=== PATIENT | female | born 1995 | race Caucasian/White ===

== ENCOUNTER 2017-07-18 23:21 | Emergency (ER) | payer SELFPAY ==
[2017-07-18 23:22] VITALS: BP 155/103; PULSE 114; RESP 17; TEMP 36; O2SAT 96; BMI 32.9
--- NOTE | 2017-07-18 23:44 | ED.VISSUMM ---
- ER Visit Summary Date of Service: 07/18/17 Chief Complaint: Vaginal bleeding History of Present Illness: The patient is a 21 F with a history of PCOS and intermittent menstrual cycles has had vaginal spotting for the last 3-5 days after intercourse only, this has occurred 2 or 3 times total. She has unprotected intercourse with her significant other, and does not take control. Her last normal menstrual cycle was 06/01/17. She is usually irregular, but has not had spotting after intercourse like this. She is having no vaginal pain, but she has some occasional menstrual cramping, no other abdominal pains. No lightheadedness, generalized fatigue, fevers, nausea, vomiting, diarrhea, or urinary symptoms. Physical Examination: Well-appearing in no acute distress. Abdomen soft nontender nondistended. Vital signs are normal. No CVA tenderness. Pelvic exam offered, but declined by patient so it was deferred. Test Results: Urine negative. Emergency Department Course and Treatment: Patient was reassured. I do not think she needs any other emergent testing at this time. She has no PCP or automation control integrator, but she needs to follow-up with an MORTAR CARRIER. I suspect that her spotting is not dangerous in nature, and is likely related to her PCOS, and is probably uterine. Treatment Plan: Close outpatient gynecologic follow-up, returning for any worsening symptoms or concern. Patient is comfortable with this plan. Disposition: Discharge home Impression: Irregular vaginal bleeding Polycystic ovarian syndrome This note was generated with [employer] dictation software. It may contain incorrect words, spelling, and punctuation that were not noted in review of the chart prior to signing ED Disposition - Plan for ED Patient: Disposition: Home or Assisted Living Chief Complaint: Vag Bleeding Instructions: ED Bleed Irregular Vaginal Referrals: Dacia Miramontes MD [STAFF PHYSICIAN] - (call for appt)
[2017-07-18 23:48] VITALS: BP 131/102; PULSE 94; RESP 18; O2SAT 99
[2017-07-18 23:59] LABS: Internal QC Validated? YES +Cl - CLEAR BKGD
[2017-07-19] LABS: Pregnancy, Urine Negative Negative
--- NOTE | 2017-07-19 00:07 | ED.DCSUM_ITS ---
- ER Visit Summary Date of Service: 07/18/17 Chief Complaint: Vaginal bleeding History of Present Illness: The patient is a 21 F with a history of PCOS and intermittent menstrual cycles has had vaginal spotting for the last 3-5 days after intercourse only, this has occurred 2 or 3 times total. She has unprotected intercourse with her significant other, and does not take control. Her last normal menstrual cycle was 06/01/17. She is usually irregular , but has not had spotting after intercourse like this. She is having no vaginal pain, but she has some occasional menstrual cramping, no other abdominal pains. No lightheadedness, generalized fatigue, fevers, nausea, vomiting, diarrhea, or urinary symptoms. Physical Examination: Well-appearing in no acute distress. Abdomen soft nontender nondistended. Vital signs are normal. No CVA tenderness. Pelvic exam offered, but declined by patient so it was deferred. Test Results: Urine negative. Emergency Department Course and Treatment: Patient was reassured. I do not think she needs any other emergent testing at this time. She has no PCP or medical center manager, but she needs to follow-up with an STUDENT ACTIVITIES DIRECTOR. I suspect that her spotting is not dangerous in nature, and is likely related to her PCOS, and is probably uterine. Treatment Plan: Close outpatient gynecologic follow-up, returning for any worsening symptoms or concern. Patient is comfortable with this plan. Disposition: Discharge home Impression: Irregular vaginal bleeding Polycystic ovarian syndrome This note was generated with [employer] dictation software. It may contain incorrect words, spelling, and punctuation that were not noted in review of the chart prior to signing ED Disposition - Plan for ED Patient: Disposition: Home or Assisted Living Chief Complaint: Vag Bleeding Instructions: ED Bleed Irregular Vaginal Referrals: Dacia Miramontes MD [STAFF PHYSICIAN] - (call for appt)
== END 2017-07-19 00:14 | disposition home or self-care (01) ==
PROVIDERS: Emergency Provider Emergency Medicine
DX: N92.6 Irregular menstruation, unspecified (principal); E28.2 Polycystic ovarian syndrome
CPT/HCPCS: 81025; 99282

== ENCOUNTER 2017-09-21 11:56 | Emergency (ER) | payer SELFPAY ==
[2017-09-21 11:58] VITALS: BP 150/92; PULSE 125; RESP 16; TEMP 37.5; O2SAT 95; BMI 32.0
[2017-09-21] MEDS: Ketorolac 30 MG/ML Syringe IV (12:56)
[2017-09-21] MEDS: 0.9% Normal Saline 1,000 ML 1000 ML IV (12:56)
--- NOTE | 2017-09-21 13:00 | RAD_ITS ---
STUDY: X-RAY CHEST REASON FOR EXAM: Female, 21 years old. Cough. TECHNIQUE: PA and lateral views of the chest. COMPARISON: Comparison is made with prior study dated December 02, 2016. FINDINGS: The lungs are clear and expanded. There is no demonstrated pleural abnormality. Normal size heart. Normal mediastinum and janelle. Normal visualized pulmonary arteries. Normal visualized aortic arch and descending thoracic aorta. Normal visualized thoracic spine. Normal visualized ribs, clavicles, and shoulders. There is no demonstrated abnormality of the visualized soft tissue structures of the upper abdomen. RAD/Chest PA and Lateral IMPRESSION: Normal x-ray examination of the chest. Electronically Signed: Joe Galeano MD at 13:19 EDT Tel [phone], Service support ,
[2017-09-21 13:07] LABS: Absolute Lymphocyte Count 1.13 X10^3/ul (0.83-4.51); Absolute Neutrophil Count 1.8 X10^3/uL (2.0-7.7); Basophil# 0.04 X10^3/uL; Basophil% 1.1 % (0-1); Eosinophil# 0.12 X10^3/uL; Eosinophils% 3.3 % (0-5); Hematocrit 49.8 % (37-47); Hemoglobin 17.3 g/dl (12.0-15.0); Lymphocyte # 1.13 X10^3/ul (4.0); Lymphocyte % 31.2 % (19-41); Mean Corp Hgb Conc 34.7 g/gl (32-36); Mean Corpuscular Hgb 29.8 pg (27.0-32.0); Mean Corpuscular Volume 85.9 fL (81-99); Mean Platelet Vol. 9.7 fl (6.2-12.0); Monocyte# 0.53 X10^3/uL; Monocyte% 14.6 % (0-10); Neutrophil % 49.8 % (47-70); Platelet Count 153 K/mm3 (150-450); RBC Distribution Width CV 13.2 % (11.6-14.6); RBC Distribution Width SD 41.5 fl (35.1-43.9); White Blood Count 3.6 K/mm3 (4.4-11.0)
[2017-09-21 13:08] LABS: POSITIVE COUNT NO; POSITIVE DIFFERENTIAL NO; POSITIVE MORPHOLOGY NO
[2017-09-21 13:19] LABS: Anion Gap 11 (5-15); BUN 11 mg/dL (7-18); BUN/Creat Ratio 15.2 RATIO (10-20); Calcium,Total 9.2 mg/dL (8.5-10.1); Chloride 102 mmol/L (98-107); Creatinine, Serum 0.72 mg/dL (0.55-1.02); EST Glomerular Filtration Rate 107 mL/min (>60); Est Glom Filt Rate - Afr Amer 130 mL/min (>60); Estimated Creatinine Clearance 93.27 ml/min; Glucose 249 mg/dL (74-106); Sodium Level 139 mmol/L (136-145)
[2017-09-21 13:28] LABS: Pregnancy, Serum, hCG Quali. NEGATIVE Negative (0-9 Nonpreg)
--- NOTE | 2017-09-21 13:33 | ED.RN ---
Dr. Pleitez notified of flu B +
[2017-09-21 13:45] VITALS: BP 167/83; PULSE 98; RESP 18; O2SAT 98
--- NOTE | 2017-09-21 14:17 | ED.DCSUM_ITS ---
- ER Visit Summary Date of Service: 09/21/17 Chief Complaint: Cough, fever, chills History of Present Illness: The patient is a 21 F with a 3 day history of what started out as runny nose and sore throat followed by non-productive cough. She has had body aches. She reports fever up to 103. Physical Examination: Vital signs are significant for blood pressure of 150/92, temperature 99.5, heart rate 125, respiratory rate 16, pulse ox 95% on room air. Patient sitting upright in bed. She is in no acute distress. Head neck examination is grossly unremarkable. Heart is tachycardic and regular. Lung sounds are grossly clear with good air movement. Abdomen is soft nontender. Skin examination reveals no rash or lesions. Test Results: Two-view chest x-ray is unremarkable. CBC was a white count of 3.6. Hemoglobin is concentrated at 17.3. Chemistry studies are significant for glucose of 249. test is negative. Influenza swab is positive for flu B. Emergency Department Course and Treatment: Patient is given a liter of IV fluids along with IV Toradol. Test results were discussed with patient and family at bedside. She declines Tamiflu at this time and will continue with supportive care. She is written off work until free of fever for 24 hours. Treatment Plan: [] Disposition: Discharge Impression: Influenza B This note was generated with [employer] dictation software. It may contain incorrect words, spelling, and punctuation that were not noted in review of the chart prior to signing ED Disposition - Plan for ED Patient: Chief Complaint: Cough Referrals: Care Physician,No Primary [Primary Care Provider] -
--- NOTE | 2017-09-21 14:17 | ED.DEP ---
ED Disposition - Plan for ED Patient: Disposition: Home or Assisted Living Chief Complaint: Cough Instructions: ED Flu Referrals: Orlando Lopez MD [STAFF PHYSICIAN] - As Needed
--- NOTE | 2017-09-22 12:58 | CM.ED ---
ED CALLBACK: Follow-up phone call placed. No answer. Voicemail left with return call back information for questions/concerns.
== END 2017-09-21 14:28 | disposition home or self-care (01) ==
PROVIDERS: Emergency Provider Emergency Medicine
DX: J10.1 Influenza due to other identified influenza virus with other respiratory manifestations (principal); E11.9 Type 2 diabetes mellitus without complications; E28.2 Polycystic ovarian syndrome; Z86.79 Personal history of other diseases of the circulatory system; Z90.49 Acquired absence of other specified parts of digestive tract; Z72.0 Tobacco use
CPT/HCPCS: 71046; 80048; 84703; 85025; 87804; 96361; 96374; 99283; J7030; A4216

== ENCOUNTER 2017-12-27 22:34 | Observation (INO) | payer SELFPAY ==
[2017-12-27 22:34] VITALS: BP 130/95; PULSE 130; RESP 22; TEMP 37.4; O2SAT 96; BMI 32.1
[2017-12-27 23:35] VITALS: BP 136/94; PULSE 127; RESP 16; O2SAT 94
[2017-12-28] VITALS (10 sets, daily range): BP systolic 114–150; BP diastolic 75–87; PULSE 104–127; RESP 18–20; TEMP 37.2; O2SAT 90–97; BMI 32.7
[2017-12-28] MEDS: Ipratropium/Albuterol Sulfate 3 ML AMPUL.NEB INHALATION ×2 (00:18→06:55)
[2017-12-28 00:25] LABS: Absolute Lymphocyte Count 2.34 X10^3/ul (0.83-4.51); Absolute Neutrophil Count 10.3 X10^3/uL (2.0-7.7); Basophil# 0.07 X10^3/uL; Basophil% 0.5 % (0-1); Eosinophil# 0.43 X10^3/uL; Eosinophils% 3.1 % (0-5); Hematocrit 47.5 % (37-47); Hemoglobin 16.4 g/dl (12.0-15.0); Lymphocyte # 2.34 X10^3/ul (4.0); Lymphocyte % 16.8 % (19-41); Mean Corp Hgb Conc 34.5 g/gl (32-36); Mean Corpuscular Hgb 30.3 pg (27.0-32.0); Mean Corpuscular Volume 87.8 fL (81-99); Monocyte# 0.72 X10^3/uL; Monocyte% 5.2 % (0-10); Neutrophil # 10.33 X10^3/uL (2.7-7.7); Neutrophil % 74.3 % (47-70); POSITIVE COUNT NO; POSITIVE DIFFERENTIAL NO; POSITIVE MORPHOLOGY NO; Platelet Count 255 K/mm3 (150-450); RBC Distribution Width CV 13.7 % (11.6-14.6); RBC Distribution Width SD 43.6 fl (35.1-43.9); Red Blood Count 5.41 M/mm3 (4.2-5.4); White Blood Count 13.9 K/mm3 (4.4-11.0)
[2017-12-28 00:30] LABS: Prothrombin Time (Protime)PT. 12.9 SECONDS (11.7-14.9)
[2017-12-28 00:31] LABS: Partial Thromboplast Time 28.7 Seconds (24.1-36.2)
[2017-12-28 00:40] LABS: Anion Gap 8 (5-15); BUN 15 mg/dL (7-18); BUN/Creat Ratio 20.6 RATIO (10-20); Chloride 104 mmol/L (98-107); Creatinine, Serum 0.73 mg/dL (0.55-1.02); EST Glomerular Filtration Rate 106 mL/min (>60); Est Glom Filt Rate - Afr Amer 128 mL/min (>60); Estimated Creatinine Clearance 91.22 ml/min; Glucose 111 mg/dL (74-106); Potassium 3.8 mmol/L (3.5-5.1); Sodium Level 139 mmol/L (136-145)
[2017-12-28 00:44] LABS: Pregnancy, Serum, hCG Quali. NEGATIVE Negative (0-9 Nonpreg)
[2017-12-28] MEDS: 0.9% Normal Saline 1,000 ML 1000 ML IV (00:49)
[2017-12-28] MEDS: Ketorolac 30 MG/ML Syringe IV (02:06)
--- NOTE | 2017-12-28 02:19 | ED.VISSUMM ---
- ER Visit Summary Date of Service: 12/28/17 Chief Complaint: Dyspnea, wheezing History of Present Illness: The patient is a 22 F worsening dyspnea wheezing since yesterday. States nonproductive cough. Fever of 100.4 this morning. No medications taken. Tobacco history. Denies any asthma or COPD history. No recent travel, surgeries, or immobilizations. No history of PE or DVT. States mild chest discomfort with a deep breaths. However no pain. No previous similar symptoms in the past. No further complaints. Physical Examination: General: Alert and oriented ?3, no distress, however occasional deep breaths. HEENT: Normocephalic, atraumatic. Moist mucosa membranes Neck: supple, nontender. Cardiovascular: Regular tachycardic rate and rhythm, no murmurs Respiratory: Normal breath sounds, symmetric, Abdomen: Soft, nontender, nondistended Extremities: Nontender, no edema, pulses intact ?4 Neuro: no focal neurological deficits. Test Results: EKG sinus tachycardia 117, no ST changes. T-wave inversion in leads III. White count 13.9. Was 16.4. Troponin negative. HCG negative. CTA chest negative for PE, dissection, or infiltrate. Emergency Department Course and Treatment: Patient subjective dyspnea, was placed on oxygen with improvement. Complaining of nonproductive cough, clinically appears short of breath. She is a moderate risk Wells criteria for potential PE. Discussed with patient for CTA of the chest for which she agreed to pursue. Labs no white count 13.9. Troponin negative. CTA chest negative for PE or dissection or infiltrate. She was given fluids all aerosol treatment x1. Reevaluation multiple heart rate would be persistently in the 120s sometimes low 130s. Later complained of headache therefore Toradol was given. However having persistent tachycardia at this time. Spoke with hospitalist Dr. Pagan for admission due to her heart rate. Treatment Plan: [] Disposition: Admission Impression: 1. Acute bronchitis 2 persistent tachycardia This note was generated with [employer] dictation software. It may contain incorrect words, spelling, and punctuation that were not noted in review of the chart prior to signing ED Disposition - Plan for ED Patient: Disposition: Acute Care Hospital [facility] Chief Complaint: Shortness of Breath Diagnosis: Acute bronchitis, Tachycardia Referrals: Care Physician,No Primary [Primary Care Provider] -
[2017-12-28] MEDS: 0.9% Normal Saline 1,000 ML 150 ML IV (02:21)
--- NOTE | 2017-12-28 02:53 | PCM.HP.STD ---
Problem List (1) Smoker Status: Acute (2) Acute bronchitis Status: Acute (3) Tachycardia Status: Acute History of Present Illness Date of Admission: 12/28/17 Chief Complaint: shortness of breath, rapid heart rate The patient is a 22 year old female with a history of diabetes and smoking presents to the ER with shortness of breath. The onset of this was yesterday but it has progressed. She denies chest pain but she reports having had fevers. No nausea or vomiting. She lacks health care insurance and admits to non compliance with her diabetes medication. CTA is negative for a PE or infiltrate. She remains labored with regard to breathing, and tachycardic and admission was request. Past Medical History Allergies No Known Allergies Allergy (Verified 12/27/17 22:36) Home Medications: Ambulatory Orders Medication Instructions Recorded Escitalopram Oxalate [Lexapro] 10 mg PO DAILY 12/27/17 Glipizide 5 mg PO DAILY 12/27/17 Metformin HCl 1,000 mg PO BID 12/27/17 Surgical History: no surgical history Psychiatric History: No pertinent psych hx MORTGAGE ADVISOR History: No pertinent MORTGAGE ADVISOR history Smoking Status: Current every day smoker - *Family History Maternal History Items: Unknown Review of Systems Constitutional: Reports: Fever. Denies: Chills, Weight Change HEENT: Denies: Head Aches, Sinus Congestion, Sinus Drainage Cardiovascular: Denies: Chest Pain, Palpitations Respiratory: Reports: Cough, Sputum production, Wheezing. Denies: Shortness of breath at rest Gastrointestinal: Denies: Abdominal Pain, Nausea, Vomiting Genitourinary: Denies: Dysuria Musculoskeletal: Denies: Joint Pain, Joint Tenderness Skin: Denies: Rash, Wounds Neurological: Denies: Numbness, Tingling, Focal weakness Psychiatric: Denies: Anxiety, Depression, Homicidal Ideations, Suicidal Ideations Hematologic/ Lymphatic: Denies: Easy Bruising, Easy Bleeding VTE Information - Inpt Only VTE Present on Admission: No VTE Mechan Device Prophylaxis: SCD's VTE Pharm Prophylaxis ordered?: No Patient Problems: Active and Suspected Problems Acute bronchitis (Acute) Tachycardia (Acute) Smoker (Acute) - Physical Exam General: Alert, Oriented x3, Cooperative HEENT: Atraumatic, Normocephalic Neck: Supple Lungs: Normal air movement, Diminished, Wheezes Cardiovascular: Normal S1, Normal S2, No murmurs, Tachycardic Abdomen: Bowel Sounds Present, Soft, Non Tender Extremities: No edema, Capillary Refill Less than 3 Seconds Skin: No rashes Musculoskeletal: No Tenderness to Palpation of Joints or Extremities Neurological: Neuro grossly intact Psych/Mental Status: Normal Affect, Appropriate Vital Signs Temp Pulse Resp BP Pulse Ox 99.4 F H 127 H 18 136/94 H 92 12/27/17 22:34 12/28/17 02:05 12/28/17 02:05 12/27/17 23:35 12/28/17 02:05 Oxygen Flow Rate (L/min) 2 Oxygen Delivery Method Room Air Weight: 170 lb Body Mass Index (BMI) 32.1 Laboratory Tests Past 24 Hrs 12/28/17 12/28/17 12/28/17 00:05 00:05 00:05 WBC 13.9 H RBC 5.41 H Hgb 16.4 H Hct 47.5 H MCV 87.8 MCH 30.3 MCHC 34.5 RDW 13.7 RDW Differential 43.6 Plt Count 255 MPV 10.0 Immature Gran % (Auto) 0.100 Neut % (Auto) 74.3 H Lymph % (Auto) 16.8 L [place] % (Auto) 5.2 Eos % (Auto) 3.1 Baso % (Auto) 0.5 Absolute Neuts (auto) 10.3 H Absolute Lymphs (auto) 2.34 Total Counted Not Reportable PT 12.9 INR 1.0 APTT 28.7 Sodium 139 Potassium 3.8 Chloride 104 Carbon Dioxide 27.0 Anion Gap 8 BUN 15 Creatinine 0.73 Estim Creat Clear Calc 91.22 Est GFR (MDRD) Af Amer 128 Est GFR (MDRD) Non-Af 106 BUN/Creatinine Ratio 20.6 H Glucose 111 H Calcium 10.0 Troponin I < 0.015 Serum , Qual 12/28/17 00:05 WBC RBC Hgb Hct MCV MCH MCHC RDW RDW Differential Plt Count MPV Immature Gran % (Auto) Neut % (Auto) Lymph % (Auto) [place] % (Auto) Eos % (Auto) Baso % (Auto) Absolute Neuts (auto) Absolute Lymphs (auto) Total Counted PT INR APTT Sodium Potassium Chloride Carbon Dioxide Anion Gap BUN Creatinine Estim Creat Clear Calc Est GFR (MDRD) Af Amer Est GFR (MDRD) Non-Af BUN/Creatinine Ratio Glucose Calcium Troponin I Serum , Qual NEGATIVE Assessment/Plan All Active Problems Acute bronchitis (Acute) Tachycardia (Acute) Smoker (Acute) Plan - admit to progressive care unit - continue hydration with normal saline at 100cc/hr - cbc, bmp in am - continue routine home medications - solumedrol 40mg IV q 8hrs - duoneb inh q 4hrs prn - levaquin 500mg IV q day - SCDs for DVT prophylaxis - humalog SSI Code Visit OBSV E&M: 28664 Initial observation care L2
--- NOTE | 2017-12-28 03:34 | NURSING ---
Called ED compressor service technician, Erica at this time to confirm Pt okay to come to PCU.
[2017-12-28] MEDS: 0.9% NaCl Peripheral Flush Adult/Peds IV (05:02)
[2017-12-28] MEDS: levoFLOXacin IV 500 MG/100 ML BAG 100 MG IV (05:09)
[2017-12-28 06:37] LABS: Absolute Lymphocyte Count 1.36 X10^3/ul (0.83-4.51); Absolute Neutrophil Count 7.9 X10^3/uL (2.0-7.7); Basophil# 0.06 X10^3/uL; Basophil% 0.6 % (0-1); Eosinophil# 0.53 X10^3/uL; Eosinophils% 5.2 % (0-5); Hematocrit 42.8 % (37-47); Hemoglobin 14.8 g/dl (12.0-15.0); Lymphocyte # 1.36 X10^3/ul (4.0); Lymphocyte % 13.3 % (19-41); Mean Corp Hgb Conc 34.6 g/gl (32-36); Mean Corpuscular Hgb 30.4 pg (27.0-32.0); Mean Corpuscular Volume 87.9 fL (81-99); Mean Platelet Vol. 9.8 fl (6.2-12.0); Monocyte% 3.9 % (0-10); Neutrophil # 7.86 X10^3/uL (2.7-7.7); Neutrophil % 76.9 % (47-70); Platelet Count 213 K/mm3 (150-450); RBC Distribution Width CV 13.8 % (11.6-14.6); RBC Distribution Width SD 44.1 fl (35.1-43.9); Red Blood Count 4.87 M/mm3 (4.2-5.4); White Blood Count 10.2 K/mm3 (4.4-11.0)
[2017-12-28 06:40] LABS: POSITIVE COUNT NO; POSITIVE DIFFERENTIAL NO; POSITIVE MORPHOLOGY NO
[2017-12-28 06:51] LABS: Bedside Glucose 306 mg/dL (70-110)
[2017-12-28 07:05] LABS: Anion Gap 9 (5-15); BUN 18 mg/dL (7-18); BUN/Creat Ratio 20.5 RATIO (10-20); Calcium,Total 8.7 mg/dL (8.5-10.1); Chloride 104 mmol/L (98-107); Creatinine, Serum 0.88 mg/dL (0.55-1.02); EST Glomerular Filtration Rate 86 mL/min (>60); Est Glom Filt Rate - Afr Amer 104 mL/min (>60); Estimated Creatinine Clearance 75.67 ml/min; Glucose 297 mg/dL (74-106); Sodium Level 138 mmol/L (136-145)
[2017-12-28] MEDS: metFORMIN HCl 1,000 MG Tablet 1000 MG PO (07:56)
[2017-12-28] MEDS: glipiZIDE 5 MG Tablet PO (07:56)
[2017-12-28] MEDS: Escitalopram Oxalate 10 MG Tablet PO (09:44)
[2017-12-28 10:15] LABS: Magnesium 1.8 mg/dL (1.6-2.6)
--- NOTE | 2017-12-28 10:23 | PCM.DC ---
- Discharge Diagnoses Current Active Problems: Current Active and Chronic Problems Acute bronchitis (Acute) Tachycardia (Acute) Smoker (Acute) You will use the following diet at home:: Calorie/Carbohydrate Controlled (specify 1200, 1400, etc) - 1800 noa/day Your food should be the consistency of: Regular Your liquids should be the consistency of: Regular/Thin Discharge Activity: Return to Normal Activity Allergies/Adverse Reactions: Allergies No Known Allergies Allergy (Verified 12/27/17 22:36) Medications to take at Discharge Escitalopram Oxalate [Lexapro] 10 mg PO DAILY 12/27/17 Glipizide 5 mg PO DAILY 12/27/17 Metformin HCl 1,000 mg PO BID 12/27/17 Albuterol IH (ProAir) [Proair Hfa] 1 puff INHALATION Q4H PRN PRN #1 inhaler 12/28/17 Prednisone [Deltasone] 40 mg PO DAILY #10 tab 12/28/17 The following prescriptions were given: Albuterol IH (ProAir) [Proair Hfa] 1 puff INHALATION Q4H PRN PRN #1 inhaler PRN Reason: Sob &/Or Wheezing Prednisone [Deltasone] 40 mg PO DAILY #10 tab Primary Care Physician: Care Physician,No Primary [Primary Care Provider] - Please follow up with your Primary Care Physician in: 1 week Test Results: Test results from this visit will be discussed in further detail at your follow-up appointment, if applicable. Proposed Discharge Date: 12/28/17
--- NOTE | 2017-12-28 10:41 | CASEMGMT ---
Patient is listed as self pay. SW spoke with her, introduced self and role at [facility]. Patient said she is waiting on open enrollment at her place of employment. She is able to afford her prescriptions without any problems. She denied need for any resources. Sary ATKINSON MSW
--- NOTE | 2017-12-28 12:57 | PCM.DC.SUM ---
<Johnathan Rockwell - Last Filed: 12/28/17 12:57> Discharge Date and Diagnosis Date of Admission: 12/28/17 Date of Discharge: 12/28/17 - Primary Discharge Diagnosis Acute bronchitis suspect viral DMt2 Obesity Nicotine abuse Hospital Course and Treatment Imaging Results: CT/CTA Chest W/WO Contrast IMPRESSION: Normal CTA chest examination, without a demonstrated pulmonary embolism or arterial dissection. Operations: cholecystecomy Procedures: None Summary of Care Provided: Physical exam on day of discharge: General: Resting comfortably NAD Psych: A/Ox3 normal affect HEENT: PEARRLA AT NC Neck: Supple NT CV: RRR no m/t/r/g/h Resp: CTA Abd: [id number] Soft NT no guarding or rigidity Ext: DP2+= no edema Skin: W/D normal turgor Lymph/Heme: No active bleeding or adenopathy Neuro: CN2-12 intact Hospital course: The patient is a 22 year old F with a hx of smoking, obesity, DMt2 who presented to the hospital with SOB and nonproductive cough for 2 days. She was found to be tachycardic, with leukocytosis, and wheezy on exam. She also had some mild right sided chest pain. A CTA of the chest was performed which was unremarkable. EKG showed sinus tachy. She was felt to have bronchitis so she was admitted to the PCU to monitor her heart rate, given duonebs, solumedrol, and IV levaquin. Her symptoms had improved by the following morning. She felt less SOB, did not require O2, her wheezing had resolved, her WBC count had resolved. She was felt to have a viral bronchitis. She was placed on oral prednisone 40 mg daily x 5 days, and given an albuterol inhaler. Abx were discontinued. She remained sinus tachy, and this was felt to be 2/2 her bronchitis and albuterol therapy. She was discharged home in stable condition. She was advised to follow up with her PCP within a week. This patient was seen by Johnathan Rockwell PA-C under the supervision of Doctor Barber. [] Discharge Diet: 1800 Calorie Control Diet Discharge Activity: Return to Normal Activity Home Medications: Medications to take at Discharge Escitalopram Oxalate [Lexapro] 10 mg PO DAILY 12/27/17 Glipizide 5 mg PO DAILY 12/27/17 Metformin HCl 1,000 mg PO BID 12/27/17 Albuterol IH (ProAir) [Proair Hfa] 1 puff INHALATION Q4H PRN PRN #1 inhaler 12/28/17 Prednisone [Deltasone] 40 mg PO DAILY #10 tab 12/28/17 Following Prescrptions Were Given to Patient: Albuterol IH (ProAir) [Proair Hfa] 1 puff INHALATION Q4H PRN PRN #1 inhaler PRN Reason: Sob &/Or Wheezing Prednisone [Deltasone] 40 mg PO DAILY #10 tab Primary Care Physician: Care Physician,No Primary [Primary Care Provider] - Please follow up with your Primary Care Physician in: 1 week Disposition: Home Minutes spent on discharge:: 35 Patient Condition:: Stable Medical Necessity - Tobacco Use Smoking Status: Current every day smoker Tobacco Use: Cigarettes Meaningful Use Info Meaningful Use Diagnoses (Choose all that apply): None applicable <Johnny Barber - Last Filed: 12/28/17 13:53> Hospital Course and Treatment Operations: None Procedures: None Summary of Care Provided: Patient seen and examined independently. Data reviewed. I agree with the above note by the physician metal moulder's assistant. The patient is a 22 year old F is a shortness of breath and cough for [address] imaging for pulmonary embolism. Also did not reveal any infiltrates.. Patient will be discharged with redness on butyryl. Patient was noted to be tachycardic. Once again, patient did not have a pulmonary embolism. Likely reactive with the patient's shortness of breath. Patient was not hypoxic. Likely her tachycardia is also exacerbated by her butyryl. As for the patient follow-up with her primary care doctor to see if the tachycardia still an ongoing issue. Given the patient's young age and lack of other systemic medical comorbidities at this time I do not feel is necessary to treat her tachycardia as I feel it is reactive. [] Discharge Diet: 1800 Calorie Control Diet Discharge Activity: Return to Normal Activity Disposition: Home Minutes spent on discharge:: 35 Patient Condition:: Stable Meaningful Use Info Meaningful Use Diagnoses (Choose all that apply): None applicable Code Visit OBSV E&M: 29362 Observation care discharge
== END 2017-12-28 10:24 | disposition home or self-care (01) ==
LOC: ED 12-28 02:33 → PCU 12-28 03:10 → MS3 12-29 10:48
PROVIDERS: Physician Assistant; Admitting Provider Family Medicine; Emergency Provider Emergency Medicine
DX: J20.9 Acute bronchitis, unspecified (principal); E66.9 Obesity, unspecified; Z68.32 Body mass index [BMI] 32.0-32.9, adult; Z71.3 Dietary counseling and surveillance; E11.9 Type 2 diabetes mellitus without complications; F17.210 Nicotine dependence, cigarettes, uncomplicated; Z91.14 Patient's other noncompliance with medication regimen; Z79.84 Long term (current) use of oral hypoglycemic drugs; Z79.899 Other long term (current) drug therapy; R00.0 Tachycardia, unspecified; R94.31 Abnormal electrocardiogram [ECG] [EKG]; F32.9 Major depressive disorder, single episode, unspecified
CPT/HCPCS: 36415; 71275; 80048; 82962; 83735; 84484; 84703; 85025; 85610; 85730; 93005; 94640; 96361; 96365; 96375; 96376; 99218; 99283; 99406; J7030; Q9967; A4216; G0378

== ENCOUNTER 2018-02-12 22:17 | Emergency (ER) | payer SELFPAY ==
[2018-02-12 22:18] VITALS: BP 163/103; PULSE 116; RESP 16; TEMP 36; O2SAT 97; BMI 33.0
--- NOTE | 2018-02-12 22:31 | EKG12_ITS ---
Test Reason : CP Blood Pressure : / mmHG Vent. Rate : 090 BPM Atrial Rate : 090 BPM P-R Int : 116 ms QRS Dur : 082 ms QT Int : 336 ms P-R-T Axes : 054 054 016 degrees QTc Int : 411 ms Normal sinus rhythm Normal ECG Confirmed by PETER HOPPER, AMIRAH ([id number]), editor in chief GULSHAN CAMPUZANO ([id number]) on 02/14/2018 3:23:30 PM Referred By: TERA/ALLAN Confirmed By:AMIRAH GREEN MD
--- NOTE | 2018-02-12 22:36 | ED.DCSUM_ITS ---
- ER Visit Summary Date of Service: 02/12/18 Chief Complaint: Chest pain History of Present Illness: The patient is a 22 F waxing and waning left-sided chest pain since 5 PM, over 5 hours ago. States left arm numbness. No dyspnea. No nausea, no diaphoresis. States that chest pain in the past however this is different. Tobacco history. Diabetic history. No recent travel, surgeries, or immobilizations. No history of PE or DVT. Grandmother with VT at the age of 69. No history of stress test. No recent illness. No cough. Physical Examination: General: Alert and oriented ?3, no acute distress HEENT: Normocephalic, atraumatic. Moist mucosa membranes Neck: supple, nontender. Cardiovascular: Regular tachycardic rate and rhythm, no murmurs Respiratory: Normal breath sounds, symmetric, no distress Abdomen: Soft, nontender, nondistended Extremities: Nontender, no edema, pulses intact ?4 Neuro: no focal neurological deficits. Test Results: EKG: Sinus rate of 90, no ST changes. Isolated T wave inversion in leads III. Troponin negative. D-dimer 0.34. HCG negative. Hemoglobin 16.2. Creatinine 0.74. Chest x-ray negative. Emergency Department Course and Treatment: Patient presented chest pain, EKG n onspecific T wave inversion in leads III. Cardiac workup negative. She is given aspirin. Low risk Wells criteria for PE with tachycardia on arrival, d- dimer obtained which was negative. Chest x-ray obtained was negative. Reevaluation patient's symptoms were resolved. Heart scores a 2. Heart pathway guideline discussed with the patient. Shared decision making made, she understands a 2% risk at this time. She did not want to stay for repeat troponin. She will follow-up with PCP. Signs and symptoms discussed return. All questions were answered. Treatment Plan: [] Disposition: Discharge Impression: Atypical chest pain This note was generated with [employer] dictation software. It may contain incorrect words, spelling, and punctuation that were not noted in review of the chart prior to signing ED Disposition - Plan for ED Patient: Disposition: Home or Assisted Living Chief Complaint: Chest Pain Diagnosis: Atypical chest pain Instructions: ED Chest Pain Atypical Unkn Cause Referrals: Care Physician,No Primary [NON-STAFF] - Additional Instructions: Follow-up with your doctor next 3-5 days.
[2018-02-12] MEDS: Aspirin 81 MG TAB.CHEW 324 MG PO (22:42)
[2018-02-12 23:00] LABS: Absolute Lymphocyte Count 2.89 X10^3/ul (0.83-4.51); Absolute Neutrophil Count 6.9 X10^3/uL (2.0-7.7); Basophil# 0.05 X10^3/uL; Basophil% 0.5 % (0-1); Eosinophil# 0.38 X10^3/uL; Eosinophils% 3.5 % (0-5); Hemoglobin 16.2 g/dl (12.0-15.0); Lymphocyte # 2.89 X10^3/ul (4.0); Lymphocyte % 26.6 % (19-41); Mean Corp Hgb Conc 34.5 g/gl (32-36); Mean Corpuscular Hgb 30.2 pg (27.0-32.0); Mean Corpuscular Volume 87.7 fL (81-99); Mean Platelet Vol. 9.8 fl (6.2-12.0); Monocyte# 0.62 X10^3/uL; Monocyte% 5.7 % (0-10); Neutrophil # 6.93 X10^3/uL (2.7-7.7); Neutrophil % 63.6 % (47-70); Platelet Count 236 K/mm3 (150-450); RBC Distribution Width CV 13.1 % (11.6-14.6); RBC Distribution Width SD 41.7 fl (35.1-43.9); Red Blood Count 5.36 M/mm3 (4.2-5.4); White Blood Count 10.9 K/mm3 (4.4-11.0)
[2018-02-12 23:03] LABS: POSITIVE COUNT NO; POSITIVE DIFFERENTIAL NO; POSITIVE MORPHOLOGY NO
[2018-02-12 23:13] LABS: Anion Gap 9 (5-15); BUN 18 mg/dL (7-18); BUN/Creat Ratio 24.4 RATIO (10-20); Calcium,Total 9.3 mg/dL (8.5-10.1); Chloride 104 mmol/L (98-107); Creatinine, Serum 0.74 mg/dL (0.55-1.02); EST Glomerular Filtration Rate 104 mL/min (>60); Est Glom Filt Rate - Afr Amer 126 mL/min (>60); Estimated Creatinine Clearance 89.98 ml/min; Glucose 149 mg/dL (74-106); Potassium 3.5 mmol/L (3.5-5.1); Sodium Level 139 mmol/L (136-145)
[2018-02-12 23:14] LABS: Pregnancy, Serum, hCG Quali. NEGATIVE Negative (0-9 Nonpreg)
[2018-02-12 23:36] LABS: International Normalized Ratio 0.9; Partial Thromboplast Time 29.3 Seconds (24.1-36.2); Prothrombin Time (Protime)PT. 12.2 SECONDS (11.7-14.9)
[2018-02-12 23:45] VITALS: BP 116/74; PULSE 81; RESP 19; O2SAT 96
[2018-02-12 23:48] LABS: D-Dimer Quantitative (DVT/PE) 0.34 FEU/ug/m (0.27-0.49)
--- NOTE | 2018-02-13 00:01 | RAD_ITS ---
STUDY: X-RAY CHEST REASON FOR EXAM: Female, 22 years old. Chest pain TECHNIQUE: 2 views COMPARISON: September 21, 2017 FINDINGS: The lungs are clear and expanded. There is no demonstrated pleural abnormality. Normal size heart. Normal mediastinum and janelle. Normal visualized pulmonary arteries. Normal visualized aortic arch and descending thoracic aorta. Normal visualized thoracic spine. Normal visualized ribs, clavicles, and shoulders. There is no demonstrated abnormality of the visualized soft tissue structures of the upper abdomen. RAD/Chest PA and Lateral IMPRESSION: Normal x-ray examination of the chest. No acute findings in the lungs Electronically Signed: Kirit Santiago MD at 0:33 EDT Tel , Service support ,
[2018-02-13 00:03] VITALS: BP 107/82; PULSE 86; RESP 18; O2SAT 96
[2018-02-13 01:15] VITALS: BP 114/81; PULSE 92; RESP 18; O2SAT 98
== END 2018-02-13 01:16 | disposition home or self-care (01) ==
PROVIDERS: Emergency Provider Emergency Medicine; Family Provider Nurse Practitioner Primary Care; PCP Nurse Practitioner Primary Care
DX: R07.89 Other chest pain (principal); R20.0 Anesthesia of skin; E11.9 Type 2 diabetes mellitus without complications; E28.2 Polycystic ovarian syndrome; F32.9 Major depressive disorder, single episode, unspecified; F41.9 Anxiety disorder, unspecified; Z79.84 Long term (current) use of oral hypoglycemic drugs; Z79.899 Other long term (current) drug therapy; Z72.0 Tobacco use
CPT/HCPCS: 71046; 80048; 84484; 84703; 85025; 85379; 85610; 85730; 93005; 99284; A4216

== ENCOUNTER 2018-04-10 22:55 | Emergency (ER) | payer SELFPAY ==
[2018-04-10 22:56] VITALS: BP 164/83; PULSE 124; RESP 20; TEMP 36.5; O2SAT 99; BMI 32.1
--- NOTE | 2018-04-10 23:26 | ED.DCSUM_ITS ---
- ER Visit Summary Date of Service: 04/10/18 Chief Complaint: [] Patient presents with low back injury. 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 She has not take anything for it. Hurts to bend and move. Relieved with rest. Comes in for further evaluation. History of Present Illness: The patient is a 22 F [] Physical Examination: [] Vital signs reviewed General: Well-nourished well-developed Head: Normocephalic atraumatic Eyes: Pupils equal round and reactive to light extraocular movements intact ENT: TMs clear no hemotympanum no trauma Neck: Nontender full range of motion Cardiovascular: Regular rate rhythm no murmurs normal S1-S2 Respiratory: No distress clear to auscultation bilaterally chest nontender Abdomen: Soft nontender nondistended normal bowel sounds no masses Back: Nontender. Crease range of motion lower lumbar spine secondary to discomfort. No CVA tenderness Extremities: Nontender active range of motion ?4 extremities no trauma Skin: Normal color no trauma Neuro alert oriented cranial nerves II through XII intact normal strength sensation reflexes Test Results: [] Emergency Department Course and Treatment: [] At this time I think the patient just strained her low back. Given a shot of morphine and Toradol. Will use ice rest and ibuprofen at home. I do not think she needs imaging. Treatment Plan: [] Disposition: [] Impression: [] Low back strain This note was generated with [employer] dictation software. It may contain incorrect words, spelling, and punctuation that were not noted in review of the chart prior to signing ED Disposition - Plan for ED Patient: Chief Complaint: Back Referrals: Nighat Gibson NP-C [Primary Care Provider] -
--- NOTE | 2018-04-10 23:26 | ED.DEP ---
ED Disposition - Plan for ED Patient: Disposition: Home or Assisted Living Chief Complaint: Back Instructions: ED Sprain Strain Lumbar Referrals: PodlogarNighat NP-C [Primary Care Provider] -
[2018-04-10] MEDS: Ketorolac 30 MG/ML Syringe IM (23:29)
[2018-04-10] MEDS: Morphine 4 MG/ML Syringe IM (23:29)
[2018-04-10 23:54] VITALS: RESP 16
== END 2018-04-10 23:55 | disposition home or self-care (01) ==
PROVIDERS: Emergency Provider Emergency Medicine; Family Provider Nurse Practitioner Primary Care; PCP Nurse Practitioner Primary Care
DX: S39.012A Strain of muscle, fascia and tendon of lower back, initial encounter (principal); X50.1XXA Overexertion from prolonged static or awkward postures, initial encounter; Y93.9 Activity, unspecified; Y92.9 Unspecified place or not applicable; E11.9 Type 2 diabetes mellitus without complications; Z90.49 Acquired absence of other specified parts of digestive tract; Z79.84 Long term (current) use of oral hypoglycemic drugs; Z72.0 Tobacco use
CPT/HCPCS: 96372; 99282

== ENCOUNTER 2018-07-14 22:32 | Emergency (ER) | payer SELFPAY ==
[2018-07-14 22:32] VITALS: BP 147/90; PULSE 128; RESP 18; TEMP 38.4; O2SAT 99; BMI 32.0
--- NOTE | 2018-07-14 23:13 | ED.DCSUM_ITS ---
- ER Visit Summary Date of Service: 07/14/18 Chief Complaint: [] Fevers History of Present Illness: The patient is a 22 F she states she is been having fevers for last 5 days gradual onset intermittent. She gets aches when her fever comes on. She uses Tylenol which brings it down. No flu shot. She denie s any other symptoms. No sore throat. No skin infections. She has had mono remotely but does not have a throat. Denies any respiratory symptoms otherwise feels normal Physical Examination: Vital signs reviewed. Temperature 101.2 General: Well-nourished well-developed Head: Normocephalic atraumatic Eyes: Pupils equal round and reactive to light extraocular movements intact ENT: TMs clear no hemotympanum no trauma Neck: Nontender full range of motion Cardiovascular: Regular tachycardia with normal rhythm no murmurs normal S1-S2 Respiratory: No distress clear to auscultation bilaterally chest nontender Abdomen: Soft nontender nondistended normal bowel sounds no masses Back: Nontender no CVA tenderness Extremities: Nontender active range of motion ?4 extremities no trauma Skin: Normal color no trauma Neuro alert oriented cranial nerves II through XII intact normal strength sensation reflexes Test Results: [] Emergency Department Course and Treatment: [] Patient appears quite well. Given ibuprofen. Urinalysis obtained. Declined flu swab. Do not think she needs a chest x-ray. Urinalysis was negative. At this time the patient likely has influenza. I know she does not have much symptoms. I feel she can follow-up as an outpatient. Treatment Plan: [] Disposition: [] Impression: [] Fevers This note was generated with [employer] dictation software. It may contain incorrect words, spelling, and punctuation that were not noted in review of the chart prior to signing ED Disposition - Plan for ED Patient: Referrals: LeeannelogNighat amezquita NP-C [Primary Care Provider] -
[2018-07-14] MEDS: Ibuprofen 400 MG Tablet 800 MG PO (23:39)
[2018-07-14 23:48] LABS: Mucous, Urine 0 SEEN /hpf (<or=2+); White Blood Cells 0 SEEN /hpf (0-5)
[2018-07-14 23:49] LABS: Color, Urine Yellow (Yellow); Glucose, Dipstick 50 mg/dl (Normal); Ketone-Dipstick 50 mg/dl (Negative); Leukocyte Esterase-Dipstick Negative /ul (Negative); Nitrite-Dipstick Negative (Negative); Occult Blood-Urine Negative /ul (Negative); Protein-Dipstick 15 mg/dl (Negative); Specific Gravity, Urine 1.015 (1.002-1.030); Urine Bilirubin Dipstick Negative (Negative); Urine Clarity Sl. Cloudy (Clear); Urine Urobilinogen 1 mg/dl (Normal); Urine pH 6.5 (5.0 - 8.0)
[2018-07-15 00:04] LABS: Red Blood Cells-Urine 0-5 SEEN /hpf (0-5); Squamous Epithelial Cells - UA 0-5 SEEN /hpf (5-10)
[2018-07-15 00:05] LABS: Bacteria RARE /hpf (None Seen)
--- NOTE | 2018-07-15 00:07 | ED.DEP ---
ED Disposition - Plan for ED Patient: Disposition: Home or Assisted Living Instructions: ED Viral Syndrome Referrals: Nighat Gibson NP-C [Primary Care Provider] -
[2018-07-15 00:16] VITALS: BP 139/87; PULSE 97; RESP 16; TEMP 37.7; O2SAT 97; O2SAT 98
== END 2018-07-15 00:19 | disposition home or self-care (01) ==
PROVIDERS: Emergency Provider Emergency Medicine; Family Provider Nurse Practitioner Primary Care; PCP Nurse Practitioner Primary Care
DX: R50.9 Fever, unspecified (principal); Z72.0 Tobacco use
CPT/HCPCS: 81001; 99282

== ENCOUNTER 2019-01-04 12:38 | Emergency (ER) | payer SELFPAY ==
[2019-01-04 12:39] VITALS: BP 165/91; PULSE 108; RESP 17; TEMP 36.1; O2SAT 99; BMI 31.1
[2019-01-04 13:16] LABS: Absolute Lymphocyte Count 2.66 X10^3/uL (0.83-4.51); Absolute Neutrophil Count 5.8 X10^3/uL (2.0-7.7); Basophil# 0.05 X10^3/uL; Basophil% 0.5 % (0-1); Eosinophil# 0.24 X10^3/uL; Eosinophils% 2.6 % (0-5); Hematocrit 47.9 % (37-47); Hemoglobin 16.6 g/dL (12.0-15.0); Lymphocyte # 2.66 X10^3/ul (4.0); Lymphocyte % 28.6 % (19-41); Mean Corp Hgb Conc 34.7 g/dL (32-36); Mean Corpuscular Hgb 30.3 pg (27.0-32.0); Mean Corpuscular Volume 87.6 fL (81-99); Mean Platelet Vol. 9.9 fl (6.2-12.0); Monocyte# 0.58 X10^3/uL; Monocyte% 6.2 % (0-10); NRBC Flagged by Analyzer 0 % (0-5); Neutrophil # 5.75 X10^3/uL (2.7-7.7); Neutrophil % 61.9 % (47-70); Platelet Count 226 K/mm3 (150-450); RBC Distribution Width CV 13.1 % (11.6-14.6); RBC Distribution Width SD 41.9 fl (35.1-43.9); Red Blood Count 5.47 M/mm3 (4.2-5.4); White Blood Count 9.3 K/mm3 (4.4-11.0)
[2019-01-04 13:28] LABS: Anion Gap 9 (5-15); BUN 15 mg/dL (7-18); BUN/Creat Ratio 19.8 RATIO (10-20); Calcium,Total 8.2 mg/dL (8.5-10.1); Chloride 106 mmol/L (98-107); Creatinine, Serum 0.76 mg/dL (0.55-1.02); EST Glomerular Filtration Rate 100 mL/min (>60); Est Glom Filt Rate - Afr Amer 121 mL/min (>60); Estimated Creatinine Clearance 86.87 ml/min; Glucose 232 mg/dL (74-106); Mucous, Urine 0 SEEN /hpf (<or=2+); Potassium 3.7 mmol/L (3.5-5.1); Red Blood Cells-Urine 0 SEEN /hpf (0-5); Sodium Level 140 mmol/L (136-145)
[2019-01-04 13:30] LABS: Color, Urine Yellow (Yellow); Glucose, Dipstick 1000 mg/dl (Normal); Ketone-Dipstick 5 mg/dl (Negative); Leukocyte Esterase-Dipstick 25 /ul (Negative); Nitrite-Dipstick Negative (Negative); Occult Blood-Urine Negative /ul (Negative); Protein-Dipstick 15 mg/dl (Negative); Specific Gravity, Urine 1.015 (1.002-1.030); Urine Bilirubin Dipstick Negative (Negative); Urine Clarity Sl. Cloudy (Clear); Urine Urobilinogen 1 mg/dl (Normal)
[2019-01-04 13:38] LABS: Bacteria 2+ /hpf (None Seen); Squamous Epithelial Cells - UA 5-10 SEEN /hpf (5-10); White Blood Cells 0-5 SEEN /hpf (0-5)
[2019-01-04] MEDS: Ondansetron 4 MG/2 ML Vial IV (13:39)
[2019-01-04] MEDS: 0.9% Normal Saline 1,000 ML 1000 ML IV (13:39)
[2019-01-04] MEDS: Ketorolac 15 MG/ML Vial IV (13:39)
[2019-01-04 13:40] LABS: Internal QC Validated? YES +Cl - CLEAR BKGD; Pregnancy, Serum, hCG Quali. NEGATIVE Negative
--- NOTE | 2019-01-04 13:58 | ED.VISSUMM ---
- ER Visit Summary Date of Service: 01/04/19 Chief Complaint: Abdominal pain History of Present Illness: The patient is a 23 F who reports that she has vomiting and diarrhea that began yesterday. She vomited once yesterday has not vomited today. She had multiple episodes of diarrhea yesterday. States this occurred approximately 10 times. No blood in her stools or black tarry stools. Patient reports that she has lower abdominal pain that began suddenly today. Cyst having pain is 9-10 at worst and 7-10 currently. Is worsened by nothing relieved by nothing. Patient is any dysuria. Reports her last menstrual period was approximately 3 weeks ago. No vaginal bleeding or discharge. Patient does report that she has had sick contacts. She has a friend who is vomiting and diarrhea. He has not been camping out of the country. No possible food exposure. Does not drink well water. No recent antibiotics. Physical Examination: Vitals: Stable. Afebrile. General: Well-nourished and well-developed. Head: Normocephalic atraumatic. Neck: Supple, no lymphadenopathy. No JVD. Nontender. Cardiovascular: Regular rate and rhythm. No murmurs. Respiratory: No respiratory distress. Clear to auscultation bilaterally. Abdominal: Soft, nontender, nondistended, normal bowel sounds. No guarding, rebound, or peritoneal signs. Back: Nontender. Extremities: Nontender, no edema. Skin: Normal color, no rash. Neurologic: Alert and oriented ?3. Cranial nerves II through XII are intact. Normal strength and sensation. Psych: Normal affect. Test Results: Normal CBC shows an H&H of 6.6 and 47.9. Chem-7 shows a glucose of 232 and calcium of 8.3. UA shows no evidence of infection. Emergency Department Course and Treatment: Patient had an IV placed she was given 2 normal saline. She was given Zofran and Toradol IV. She is resting comfortably. She is had no vomiting or diarrhea while here. Treatment Plan: Patient will be discharged with Zofran. Instructed to take her metformin as previously prescribed. Follow-up with primary care physician 1 to 2 days if not improving. Return to the emergency department for any worsening symptoms. Disposition: To home in improved and stable condition. Impression: 1. Vomiting/diarrhea. This note was generated with [employer] dictation software. It may contain incorrect words, spelling, and punctuation that were not noted in review of the chart prior to signing ED Disposition - Plan for ED Patient: Disposition: Home or Assisted Living Instructions: VOMITING AND DIARRHEA, Nonspecific (Adult) Prescriptions: Ondansetron [Zofran Odt] 4 mg PO Q8H PRN PRN #10 tab PRN Reason: Nausea Prescription Printed Referrals: PodlogarNighat, CANVAS BASTER JUMPBASTING-C [Primary Care Provider] - 1-2 Days if not improving
[2019-01-04 14:15] VITALS: RESP 18
== END 2019-01-04 14:20 | disposition home or self-care (01) ==
LOC: ED 13:18
PROVIDERS: Emergency Provider Emergency Medicine; Family Provider Nurse Practitioner Primary Care; PCP Nurse Practitioner Primary Care
DX: R10.30 Lower abdominal pain, unspecified (principal); R11.2 Nausea with vomiting, unspecified; R51 Headache; E11.9 Type 2 diabetes mellitus without complications; E28.2 Polycystic ovarian syndrome; Z90.49 Acquired absence of other specified parts of digestive tract; Z79.84 Long term (current) use of oral hypoglycemic drugs; F17.200 Nicotine dependence, unspecified, uncomplicated
CPT/HCPCS: 80048; 81001; 84703; 85025; 96361; 96374; 96375; 99283; J7030; A4216; J2405

== ENCOUNTER 2019-12-29 20:14 | Emergency (ER) | payer MEDICAID, SELFPAY ==
[2019-12-29 20:14] VITALS: BP 164/98; PULSE 114; RESP 16; TEMP 36.2; O2SAT 97; BMI 31.7
--- NOTE | 2019-12-29 21:34 | ED.DCSUM_ITS ---
History of Present Illness Chief Complaint: Nausea/Vomiting Informant: Patient - Abdominal Pain/Flank Pain Onset: Today Context: - - all day, since this AM; approx 12 hrs of sx Timing: Intermittent Quality: Aching, Cramping Location: Epigastric Current Severity: Gone Maximum Severity: Moderate Worsened by: Food Relieved by: Nothing - Nausea/Vomiting/Emesis GI Symptom: Vomiting - without any nausea. Negative for: Nausea Onset: Today Quality: Nonbilious. Negative for: Blood streaks, Coffee ground, Hematemesis Severity: Severe - Diarrhea/Melena/Hematochezia GI Symptom: Negative for: Diarrhea, Melena, Hematochezia Associated Symptoms: Negative for: Dysuria, Frequency, Hematuria, Urgency Narrative: Patient states she has been throwing up all day, but states that she has had no nausea. When asked if she was vomiting because she was gagging, she states no, but she has had upper abdominal cramping that started later after the vomiting and has been there most of the day as well, relatively mild, waxing and waning. She states it is really not bothering her too much right now but she feels dehydrated. She is healthy otherwise. She does not drink alcohol, and she does not take ibuprofen or other NSAIDs very often or at all recently. She has had a prior cholecystectomy, no other abdominal surgeries. Past Medical History - Allergies and Home Meds Allergies/Adverse Reactions: Allergies No Known Allergies Allergy (Verified 12/29/19 20:16) Primary Care Physician: Care Physician,No Primary [Primary Care Provider] - Surgical History: cholecystectomy Smoking Status: Current every day smoker - Family History Maternal Family History: Reports: Unknown Review of Systems General: Reports: Malaise. Denies: Chills, Fever, Sweats Eyes: Denies: Visual changes - bilaterally, Diplopia ENT: Denies: Rhinorrhea, Sore throat Cardiovascular: Denies: Chest pain, Palpitations Respiratory: Denies: Dyspnea, Cough, Dyspnea on exertion Gastrointestinal: Reports: Abdominal pain, Nausea, Vomiting. Denies: Diarrhea, Melena, Hematochezia Genitourinary: Denies: Dysuria, Hematuria, Frequency Musculoskeletal: Denies: Neck pain, Back pain, Extremity Pain Skin: Denies: Rash, Wounds Neurological: Denies: Headache, Weakness, Numbness Physical Exam Vital Signs/Narrative: Vital Signs Temp Pulse Resp BP Pulse Ox 12/29/19 20:14 97.1 F L 114 H 16 164/98 H 97 Inital Vital Signs reviewed: Yes General: Well nourished, Well developed, No Acute Distress Head: Normocephalic, Atraumatic Eyes: Perrl, EOMI ENT: Moist mucous membranes - w/ dry lips, No rhinorrhea Neck: Supple, Nontender Cardiovascular: Regular rate, Regular rhythm, No murmurs, Tachycardia Respiratory: No distress, CTA bilaterally, Chest nontender Abdomen: Soft, Nontender, Nondistended, Normal bowel sounds Back: Nontender, Normal Inspection. Negative for: CVA tenderness Extremities: Nontender, No edema Skin: Normal color, No rash, No Trauma Neurological: Alert, Oriented x3, Cranial nerves II-XII grossly intact, Normal Strength, Normal Sensation, Normal Gait Psychological: Normal affect, Normal Mood Diagnostic/Tx/Re-eval Laboratory Tests 12/29/19 12/29/19 12/29/19 Range/Units 22:00 21:57 21:57 WBC (4.4-11.0) K/mm3 RBC (4.2-5.4) M/mm3 Hgb (12.0-15.0) g/dL Hct (37-47) % MCV (81-99) fL MCH (27.0-32.0) pg MCHC (32-36) g/dL RDW Std Deviation (35.1-43.9) fl RDW Coeff of Johan (11.6-14.6) % Plt Count (150-450) K/mm3 MPV (6.2-12.0) fl Immature Gran % (Auto) (0.0-0.9) % Neut % (Auto) (47-70) % Lymph % (Auto) (19-41) % Pender % (Auto) (0-10) % Eos % (Auto) (0-5) % Baso % (Auto) (0-1) % Absolute Neuts (auto) (2.0-7.7) X10^3/uL Absolute Lymphs (auto) (0.83-4.51) X10^3/uL Nucleated RBC % (0-5) % Sodium 138 (136-145) mmol/L Potassium 3.7 (3.5-5.1) mmol/L Chloride 107 (98-107) mmol/L Carbon Dioxide 24.0 (21.0-32.0) mmol/L Anion Gap 7 (5-15) BUN 12 (7-18) mg/dL Creatinine 0.67 (0.55-1.02) mg/dL Estim Creat Clear Calc 97.70 ml/min Est GFR (MDRD) Af Amer 139 (>60) mL/min Est GFR (MDRD) Non-Af 115 (>60) mL/min BUN/Creatinine Ratio 17.9 (10-20) RATIO Glucose 214 H (74-106) mg/dL Calcium 8.5 (8.5-10.1) mg/dL Total Bilirubin 0.90 (0.20-1.00) mg/dL AST 15 (15-37) U/L ALT 54 (13-56) U/L Alkaline Phosphatase 58 (45-117) U/L Total Protein 7.3 (6.4-8.2) g/dL Albumin 3.9 (3.2-5.0) g/dL Globulin 3.4 (2.2-4.2) g/dL Albumin/Globulin Ratio 1.1 (0.9-2.4) RATIO Lipase 62 L (73-393) U/L Serum , Qual NEGATIVE Negative Urine Color Yellow (Yellow) Urine Clarity Clear (Clear) Urine pH 5.0 (5.0 - 8.0) Ur Specific [place] 1.020 (1.002-1.030) Urine Protein 30 H (Negative) mg/dl Urine Glucose (UA) 1000 H (Normal) mg/dl Urine Ketones 5 H (Negative) mg/dl Urine Occult Blood Negative (Negative) /ul Urine Nitrite Negative (Negative) Urine Bilirubin Negative (Negative) mg/dL Urine Urobilinogen Normal (Normal) mg/dl Ur Leukocyte Esterase 25 H (Negative) /ul Urine RBC 0 SEEN (0-5) /hpf Urine WBC 0 SEEN (0-5) /hpf Ur Squamous Epith Cells 5-10 SEEN (5-10) /hpf Urine Bacteria RARE (None Seen) /hpf Urine Mucus 0 SEEN (<or=2+) /hpf 08/14/20 Range/Units 21:57 WBC 13.2 H (4.4-11.0) K/mm3 RBC 6.03 H (4.2-5.4) M/mm3 Hgb 17.8 H (12.0-15.0) g/dL Hct 52.0 H (37-47) % MCV 86.2 (81-99) fL MCH 29.5 (27.0-32.0) pg MCHC 34.2 (32-36) g/dL RDW Std Deviation 39.1 (35.1-43.9) fl RDW Coeff of Johan 12.6 (11.6-14.6) % Plt Count 257 (150-450) K/mm3 MPV 9.6 (6.2-12.0) fl Immature Gran % (Auto) 0.500 (0.0-0.9) % Neut % (Auto) 80.4 H (47-70) % Lymph % (Auto) 12.9 L (19-41) % Pender % (Auto) 3.7 (0-10) % Eos % (Auto) 1.9 (0-5) % Baso % (Auto) 0.6 (0-1) % Absolute Neuts (auto) 10.6 H (2.0-7.7) X10^3/uL Absolute Lymphs (auto) 1.70 (0.83-4.51) X10^3/uL Nucleated RBC % 0 (0-5) % Sodium (136-145) mmol/L Potassium (3.5-5.1) mmol/L Chloride (98-107) mmol/L Carbon Dioxide (21.0-32.0) mmol/L Anion Gap (5-15) BUN (7-18) mg/dL Creatinine (0.55-1.02) mg/dL Estim Creat Clear Calc ml/min Est GFR (MDRD) Af Amer (>60) mL/min Est GFR (MDRD) Non-Af (>60) mL/min BUN/Creatinine Ratio (10-20) RATIO Glucose (74-106) mg/dL Calcium (8.5-10.1) mg/dL Total Bilirubin (0.20-1.00) mg/dL AST (15-37) U/L ALT (13-56) U/L Alkaline Phosphatase (45-117) U/L Total Protein (6.4-8.2) g/dL Albumin (3.2-5.0) g/dL Globulin (2.2-4.2) g/dL Albumin/Globulin Ratio (0.9-2.4) RATIO Lipase (73-393) U/L Serum , Qual Negative Urine Color (Yellow) Urine Clarity (Clear) Urine pH (5.0 - 8.0) Ur Specific [place] (1.002-1.030) Urine Protein (Negative) mg/dl Urine Glucose (UA) (Normal) mg/dl Urine Ketones (Negative) mg/dl Urine Occult Blood (Negative) /ul Urine Nitrite (Negative) Urine Bilirubin (Negative) mg/dL Urine Urobilinogen (Normal) mg/dl Ur Leukocyte Esterase (Negative) /ul Urine RBC (0-5) /hpf Urine WBC (0-5) /hpf Ur Squamous Epith Cells (5-10) /hpf Urine Bacteria (None Seen) /hpf Urine Mucus (<or=2+) /hpf - Medical Decision Making Patient is feeling better after IV fluids, Zofran, GI cocktail. She is tolerating oral fluids. Her work-up is unremarkable, except for a mild nonspecific leukocytosis, which certainly could only be demargination due to the vomiting. She wants to go home I think that is reasonable. Given prescriptions for Zofran and Bentyl, and given instructions to return. Do not think she needs a CT scan at this time, her abdomen is very benign and nontender. ED Disposition - Plan for ED Patient: Disposition: Home or Assisted Living Diagnosis: Acute gastritis without bleeding Instructions: ED Vomiting and Diarrhea Nonspecific Adult Prescriptions: Dicyclomine HCl [Bentyl] 20 mg PO Q4H PRN #20 cap PRN Reason: abdominal pain Prescription Printed Ondansetron [Zofran Odt] 8 mg PO Q8H PRN PRN #12 tab PRN Reason: Nausea Prescription Printed Referrals: Doctor,Your [STAFF PHYSICIAN] - 3-5 Days if not improving
[2019-12-29 22:06] LABS: Mucous, Urine 0 SEEN /hpf (<or=2+); Red Blood Cells-Urine 0 SEEN /hpf (0-5); White Blood Cells 0 SEEN /hpf (0-5)
[2019-12-29] MEDS: Ondansetron 4 MG/2 ML Vial IV (22:11)
[2019-12-29] MEDS: Mag Hydrox/Al Hydrox/Simeth 30 ML UDC PO (22:11)
[2019-12-29] MEDS: 0.9% Normal Saline 1,000 ML 1000 ML IV (22:13)
[2019-12-29 22:18] LABS: Absolute Neutrophil Count 10.6 X10^3/uL (2.0-7.7); Basophil# 0.08 X10^3/uL; Basophil% 0.6 % (0-1); Eosinophil# 0.25 X10^3/uL; Eosinophils% 1.9 % (0-5); Hemoglobin 17.8 g/dL (12.0-15.0); Lymphocyte % 12.9 % (19-41); Mean Corp Hgb Conc 34.2 g/dL (32-36); Mean Corpuscular Hgb 29.5 pg (27.0-32.0); Mean Corpuscular Volume 86.2 fL (81-99); Mean Platelet Vol. 9.6 fl (6.2-12.0); Monocyte# 0.49 X10^3/uL; Monocyte% 3.7 % (0-10); NRBC Flagged by Analyzer 0 % (0-5); Neutrophil # 10.58 X10^3/uL (2.7-7.7); Neutrophil % 80.4 % (47-70); Platelet Count 257 K/mm3 (150-450); RBC Distribution Width CV 12.6 % (11.6-14.6); RBC Distribution Width SD 39.1 fl (35.1-43.9); Red Blood Count 6.03 M/mm3 (4.2-5.4); White Blood Count 13.2 K/mm3 (4.4-11.0)
[2019-12-29 22:19] LABS: Color, Urine Yellow (Yellow); Glucose, Dipstick 1000 mg/dl (Normal); Ketone-Dipstick 5 mg/dl (Negative); Leukocyte Esterase-Dipstick 25 /ul (Negative); Nitrite-Dipstick Negative (Negative); Occult Blood-Urine Negative /ul (Negative); Protein-Dipstick 30 mg/dl (Negative); Urine Bilirubin Dipstick Negative (Negative); Urine Clarity Clear (Clear); Urine Urobilinogen Normal (Normal)
[2019-12-29 22:27] LABS: Internal QC Validated? YES +Cl - CLEAR BKGD; Pregnancy, Serum, hCG Quali. NEGATIVE Negative
[2019-12-29 22:34] LABS: ALB/GLOB Ratio 1.1 RATIO (0.9-2.4); AST(SGOT) 15 U/L (15-37); Alanine Aminotransfer ALT/SGPT 54 U/L (13-56); Albumin, Serum 3.9 g/dL (3.2-5.0); Alkaline Phosphatase 58 U/L (45-117); Anion Gap 7 (5-15); BUN 12 mg/dL (7-18); BUN/Creat Ratio 17.9 RATIO (10-20); Calcium,Total 8.5 mg/dL (8.5-10.1); Chloride 107 mmol/L (98-107); Creatinine, Serum 0.67 mg/dL (0.55-1.02); EST Glomerular Filtration Rate 115 mL/min (>60); Est Glom Filt Rate - Afr Amer 139 mL/min (>60); Globulin 3.4 g/dL (2.2-4.2); Glucose 214 mg/dL (74-106); Lipase 62 U/L (73-393); Potassium 3.7 mmol/L (3.5-5.1); Protein, Total 7.3 g/dL (6.4-8.2); Sodium Level 138 mmol/L (136-145)
[2019-12-29 22:36] LABS: Bacteria RARE /hpf (None Seen); Squamous Epithelial Cells - UA 5-10 SEEN /hpf (5-10)
[2019-12-29 23:58] VITALS: BP 128/78; PULSE 89; RESP 15; O2SAT 98
== END 2019-12-30 00:11 | disposition home or self-care (01) ==
PROVIDERS: Emergency Provider Emergency Medicine
DX: K29.00 Acute gastritis without bleeding (principal); Z90.49 Acquired absence of other specified parts of digestive tract; F17.200 Nicotine dependence, unspecified, uncomplicated
CPT/HCPCS: 80053; 81001; 83690; 84703; 85025; 96361; 96374; 99285; J2405

== ENCOUNTER 2022-09-26 14:13 | Emergency (ER) | payer MEDICAID, SELFPAY ==
[2022-09-26 14:14] VITALS: BP 136/104; PULSE 103; RESP 16; TEMP 36.1; O2SAT 100
[2022-09-26] MEDS: Ketorolac 15 MG/ML Vial IM (14:50)
[2022-09-26 15:47] VITALS: BP 117/79; PULSE 90; RESP 16; O2SAT 98
[2022-09-26] MEDS: HYDROcodone Bitartrate/Apap 5/325 Tablet PO (15:47)
--- NOTE | 2022-09-26 16:43 | EDS_ITS ---
HPI <LAURA Herzog - Last Filed: 09/26/22 16:52> History of Present Illness Chief Complaint: Back Narrative Narrative: Patient presenting today with left-sided back pain that radiates down the back of her left leg into her left foot. He reports tingling down her left leg and intermittent numbness in her left toes. She reports that she has had this for about a month and it has gradually worsened. She states this all started when she was driving to work and sneezed and felt a, twinge on the left side of her back, and the pain started shortly after. She states she stands about 10 hours a day at work which makes it worse. She has not followed up with a provider for this as she does not have a PCP. She denies any trauma to her back, saddle paresthesia, bowel/bladder incontinence, fever, and chills. PFSH <LAURA Herzog - Last Filed: 09/26/22 16:52> PFSH Home Medications dicyclomine 10 mg capsule 20 mg PO Q4H PRN abdominal pain #20 caps 12/29/19 [Rx Last Taken Unknown] ondansetron 4 mg disintegrating tablet 8 mg PO Q8H PRN PRN Nausea #12 tabs 12/29/19 [Rx Last Taken Unknown] gabapentin 300 mg capsule 300 mg PO DAILY #10 caps 09/26/22 [Rx Last Taken Unknown] naproxen 500 mg tablet (Naprosyn) 500 mg PO BID PRN pain #20 tabs 09/26/22 [Rx Last Taken Unknown] Allergy/AdvReac Type Severity Reaction Status Date / Time No Known Allergies Allergy Verified 09/26/22 14:14 Social History Smoking Status: Current every day smoker tobacco type: cigarettes ROS <LAURA Herzog - Last Filed: 09/26/22 16:52> ROS ED Constitutional Constitutional ED: Denies chills or fever(s) Cardiovascular Cardiovascular: Denies chest pain or palpitations Respiratory/Chest Respiratory/Chest: Denies cough or dyspnea Gastrointestinal Gastrointestinal: Denies abdominal pain, nausea or vomiting Genitourinary Genitourinary ED: Denies dysuria, hematuria or urinary urgency Musculoskeletal Musculoskeletal: Reports back pain; Denies arthralgias, myalgias or neck pain Integumentary Denies abscess, Abrasions or rash Neurologic Neurologic: Reports paresthesias; Denies weakness EXAM <LAURA Herzog - Last Filed: 09/26/22 16:52> Physical Exam Const Vital Signs: 09/26/22 14:14 09/26/22 15:47 Temperature 96.9 F L Temperature Source Temporal Pulse Rate 103 H 90 Respiratory Rate 16 16 Blood Pressure 136/104 H 117/79 Blood Pressure Mean 114 Pulse Ox 100 98 Oxygen Delivery Method Room Air Positive well nourished, well developed and no apparent distress General Appearance ED: well developed HEENT Reports normocephalic and head/scalp atraumatic Mouth ED: Yes moist mucous membranes normal Eyes PERRL and EOMs intact bilaterally Neck full ROM and supple Chest Wall inspection of chest normal Resp normal respiratory effort and clear to auscultation bilaterally Cardio regular rate and regular rhythm GI soft to palpation, non-tender, non-distended and no masses Back/Spine normal ROM and normal to inspection Back/Spine Narrative: No midline back tenderness. Extremity normal to inspection and full ROM Extremity Narrative: DP pulses 2+ and equal bilaterally, good capillary refill, sensation intact. Neuro oriented x3, CN's II-XII intact bilaterally, moves all extremities, no focal motor deficits and no sensory deficits noted Sensorium / Orientation: awake and alert Psych mental status grossly normal and thought process normal Skin no rashes or lesions noted and no wounds <Dr. Oj Byrd DO - Last Filed: 09/26/22 19:48> Physical Exam Const Vital Signs: 09/26/22 14:14 09/26/22 15:47 Temperature 96.9 F L Temperature Source Temporal Pulse Rate 103 H 90 Respiratory Rate 16 16 Blood Pressure 136/104 H 117/79 Blood Pressure Mean 114 Pulse Ox 100 98 Oxygen Delivery Method Room Air MDM <LAURA Herzog - Last Filed: 09/26/22 16:52> [facility] Narrative Medical decision making narrative: Patient presenting today with left-sided back pain that radiates down the back of her left leg into her left foot. She states that the back pain is not bothering her as much as the pain and tingling she has in her left leg. She is able to ambulate. History and physical exam is not consistent with cauda equina syndrome or epidural abscess. Also, she did not have any trauma to her back, therefore, I do not feel any imaging is indicated. Symptoms are consistent with sciatica on the left side. She did report a history of uncontrolled diabetes, because of this, she will not be put on any steroids. She has been given a shot of Toradol here but then on reexamination states that her pain has not improved, she has been given a [place] here. Because of her tingling symptoms in the left lower extremity, she will be started on gabapentin and naproxen. She does not have a PCP, I have given her a referral for one and she is to follow-up with them in 3-5 days. She be discharged home in stable condition and is comfortable with plan. <Dr. Oj Byrd, DO - Last Filed: 09/26/22 19:48> [facility] Narrative Medical decision making narrative: Patient presenting today with left-sided back pain that radiates down the back of her left leg into her left foot. She states that the back pain is not bothering her as much as the pain and tingling she has in her left leg. She is able to ambulate. History and physical exam is not consistent with cauda equina syndrome or epidural abscess. Also, she did not have any trauma to her back, therefore, I do not feel any imaging is indicated. Symptoms are consistent with sciatica on the left side. She did report a history of uncontrolled diabetes, because of this, she will not be put on any steroids. She has been given a shot of Toradol here but then on reexamination states that her pain has not improved, she has been given a [place] here. Because of her tingling symptoms in the left lower extremity, she will be started on gabapentin and naproxen. She does not have a PCP, I have given her a referral for one and she is to follow-up with them in 3-5 days. She be discharged home in stable condition and is comfortable with plan. 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 I perform my own [id number] evaluation. I agree with the plan of work-up. Left-sided back pain rating down her left leg after sneezing in the car. No loss of bowel or bladder control. No history of similar. Exam is mild tenderness left lumbar straight leg test negative bilaterally 1+ patellar reflex bilaterally. Treat with Toradol in the ED edition no [place]. She started on gabapentin for sciatic and radicular symptoms. She will given referral with PCP. She has no cauda equina symptoms. Discharge Plan Triage Chief Complaint: Back ED Midlevel Provider: Tigist Preston ED Provider: Oj Byrd Dx/Rx/DC Orders Clinical Impression: Sciatica of left side Instructions: ED Sciatica Prescriptions: New naproxen [Naprosyn] 500 mg tablet 500 mg PO BID PRN (Reason: pain) Qty: 20 0RF gabapentin 300 mg capsule 300 mg PO DAILY Qty: 10 0RF Rx Instructions: Take at night. No Action ondansetron 4 MG tablet 8 mg PO Q8H PRN PRN (Reason: Nausea) Qty: 12 0RF dicyclomine 10 MG capsule 20 mg PO Q4H PRN (Reason: abdominal pain) Qty: 20 0RF Primary Care Provider: Care Physician,No Primary Referrals: Manny Parson MD [Med Staff - Active Staff] - 5-7 Days Care Physician,No Primary [Primary Care Provider] - Activity Restrictions/Additional Instructions: Please follow-up with the PCP I have referred you to and return for any worsening of symptoms. Disposition Disposition: Home, Self Care Discharge Date/Time: 09/26/22 15:51
== END 2022-09-26 15:51 | disposition home or self-care (01) ==
PROVIDERS: Emergency Provider Emergency Medicine; Visit Provider Emergency Medicine
DX: M54.32 Sciatica, left side (principal); F17.210 Nicotine dependence, cigarettes, uncomplicated
CPT/HCPCS: 96372; 99283